=== PATIENT | male | born 1975 ===

== ENCOUNTER 2018-03-01 04:22 | Emergency (ER) | payer OTHER ==
[2018-03-01 04:35] VITALS: RESP 18; O2SAT 98
--- NOTE | 2018-03-01 04:56 | ED PDOC ---
HPI: Psych/Substance Abuse Time Seen by Provider: 03/01/18 04:35 Chief Complaint (Nursing): Alcohol Ingestion Chief Complaint (Provider): Alcohol Intoxication ED Caveat: Intoxicated History Per: EMS History/Exam Limitations: no limitations Onset/Duration Of Symptoms: Hrs Current Symptoms Are (Timing): Still Present Modifying Factor(s): Alcohol Additional Complaint(s): Austin Hearn is a 42 year old male with unknown past medical history who was brought to the ED by EMS for evaluation of alcohol intoxication. Patient was found laying outside by the police. He is intoxicated so history is unable to be obtained. PMD: neon provided Past Medical History Reviewed: Historical Data, Nursing Documentation, Vital Signs, Unable To Obtain Vital Signs: Last Vital Signs Temp 97.6 F 03/01/18 04:34 Pulse 87 03/01/18 04:34 Resp 18 03/01/18 04:34 BP 127/91 H 03/01/18 04:34 Pulse Ox 98 03/01/18 04:34 - Family History Family History: States: Unknown Family Hx - Allergies Allergies/Adverse Reactions: Allergies Allergy/AdvReac Type Severity Reaction Status Date / Time No Known Allergies Allergy Verified 03/01/18 04:33 Review of Systems ROS Statement: Except As Marked, All Systems Reviewed And Found Negative Review Of Systems: ROS cannot be obtained secondary to pt's inabilty to answer questions. (intoxicated) Physical Exam - Reviewed Nursing Documentation Reviewed: Yes Vital Signs Reviewed: Yes - Physical Exam Appears: Positive for: Non-toxic, No Acute Distress (appears intoxicated ) Head Exam: Positive for: ATRAUMATIC, NORMAL INSPECTION, NORMOCEPHALIC Skin: Positive for: Normal Color, Warm, DRY Eye Exam: Positive for: Normal appearance ENT: Positive for: Normal ENT Inspection Neck: Positive for: Normal, Painless ROM Cardiovascular/Chest: Positive for: Regular Rate, Rhythm Respiratory: Positive for: Normal Breath Sounds Gastrointestinal/Abdominal: Positive for: Normal Exam Extremity: Positive for: Normal ROM Neurologic/Psych: Positive for: Alert. Negative for: Motor/Sensory Deficits - ECG O2 Sat by Pulse Oximetry: 98 (RA) Pulse Ox Interpretation: Normal Medical Decision Making Medical Decision Making: Time: 4:40 42 year old male presenting with alcohol intoxication --Will observe patient in ED until clinically sober. [address] Vallecillo pending sobriety. Scribe Attestation: Documented by, Nora Giordano acting as a scribe for Silverio Bailey MD. Provider Scribe Attestation: All medical record entries made by the Scribe were at my direction and personally dictated by me. I have reviewed the chart and agree that the record accurately reflects my personal performance of the history, physical exam, medical decision making, and the department course for this patient. I have also personally directed, reviewed, and agree with the discharge instructions and disposition. Disposition - Clinical Impression Clinical Impression: Alcohol abuse - Patient ED Disposition Is Patient to be Admitted: Transfer of Care - Disposition Disposition: Transfer of Care Disposition Time: 07:00 Condition: STABLE Forms: [employer] ([place]ese) Patient Signed Over To: Dana Vallecillo Handoff Comments: pending sobriety
--- NOTE | 2018-03-01 07:44 | ED PDOC ---
- ECG O2 Sat by Pulse Oximetry: 98 (RA) Medical Decision Making Medical Decision Making: Time: 07:00 Patient is endorsed to Dr. Vallecillo from Dr. Bailey pending clinical sobriety. Scribe Attestation: Documented by Dong Stearns, acting as a scribe for Dr. Dana Vallecillo. Provider Scribe Attestation: All medical record entries made by the Scribe were at my direction and personally dictated by me. I have reviewed the chart and agree that the record accurately reflects my personal performance of the history, physical exam, medical decision making, and the department course for this patient. I have also personally directed, reviewed, and agree with the discharge instructions and disposition. 2.15p patient is awake, alert and cooperative. Will d/c Disposition Doctor Will See Patient In The: Office - Clinical Impression Clinical Impression: Alcohol abuse - POA Present On Arrival: None - Disposition Disposition: Routine/Home Disposition Time: 14:25 Condition: STABLE Instructions: Alcohol Abuse and Alcoholism (DC) Forms: [email or web address] (Mosotho) Print Language: MICRONESIAN
[2018-03-01 15:10] VITALS: BP 132/74; PULSE 85; TEMP 98
== END 2018-03-01 15:10 | disposition home or self-care (01) ==
LOC: H.ER 04:22
DX: F10.129 Alcohol abuse with intoxication, unspecified (principal); Y90.8 Blood alcohol level of 240 mg/100 ml or more